=== PATIENT | female | born 1990 | race African-American/Black ===

== ENCOUNTER 2016-11-10 17:52 | Emergency (ER) | payer MEDICAID ==
[~2016-11-10] VITALS: Ht 167.6 cm; Wt 74.4 kg
[2016-11-10] MEDS ORDERED: METFORMIN HCL500 M1 ORAL (18:45)
[2016-11-10 18:55] VITALS: BP 145/87
--- NOTE | 2016-11-14 06:57 | Emergency Room Report ---
History of Present Illness General Chief Complaint: Chest Pain Source: Patient Present Illness HPI 26YOF walk-in with chest pain for 1-2 days. Sharp, left upper chest, non- radiating, Worse with movement. Not pleuritic. No assoc cough, nausea/vomiting , diaphoresis. Questionable history of HTN and DM. used to take metformin, stopped because she ran out weeks ago. Blood sugar at home was >300. Unable to followup with PMD Patient History Past Medical History: DM, HTN Past Surgical History: none Pertinent Family History: none Social History: Denies: smoking, alcohol use, drug use Last Menstrual Period: 10/20 Now: No Immunizations: UTD Reviewed Nursing Documentation: PMH: Agreed, PSxH: Agreed Nursing Documentation-PMH Past Medical History: No History, Except For Hx Hypertension: Yes Review of Systems All Other Systems: negative except mentioned in HPI Physical Exam Vital Signs Date Time Temp Pulse Resp B/P (MAP) Pulse Ox O2 Delivery O2 Flow Rate FiO2 11/10/16 18:04 98.2 84 15 99 Room Air 11/10/16 18:55 145/87 Sp02 EP Interpretation: reviewed, normal General Appearance: normal inspection, well appearing, no apparent distress, alert, GCS 15, non-toxic Head: normocephalic, atraumatic Eyes: bilateral eye PERRL, bilateral eye EOMI ENT: normal ENT inspection, hearing grossly normal, normal voice Neck: normal inspection, full range of motion, supple, no bony tend Respiratory: normal inspection, lungs clear, normal breath sounds, no respiratory distress, no retraction, no wheezing, other - Palpation of chest causes reproducible pain, chest symmetrical Cardiovascular #1: regular rate, rhythm, no edema Gastrointestinal: normal inspection, normal bowel sounds, non tender, soft, no guarding, no hernia Genitourinary: no CVA tenderness Musculoskeletal: normal inspection, back normal, normal range of motion, Maris' s Sign negative Neurologic: normal inspection, alert, oriented x3, responsive, 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 Occurring over 2 days ECG is NSR. No ischemia CP resolved while in the ED Glucose here was ~150 Will Refill Rx Metformin - patient states she used to take 500mg BID Will have close PMD followup in 1-2 days Return to ER for worsening chest pain EKG Diagnostic Results Rate: normal Rhythm: NSR ST Segments: no acute changes ASA given to the pt in ED: No Last Vital Signs Date Time Temp Pulse Resp B/P (MAP) Pulse Ox O2 Delivery O2 Flow Rate FiO2 11/10/16 18:55 78 12 145/87 99 Room Air 11/10/16 18:55 98.2 Status: improved Disposition: HOME, SELF-CARE Condition: Improved Scripts Metformin Hcl* (METFORMIN HCL*) 500 Mg Tablet 500 MG ORAL TWICE A DAY for 30 Days, #60 TAB Prov: JUSTIN SANTANA M.D. 11/10/16 Referrals: [facility]ERR[facility] (PCP) Patient Instructions: Nonspecific Chest Pain, Diabetes Mellitus and Food Additional Instructions: - Take Metformin twice a day as prescribed - Follow up with your doctor in 2-3 days - Take tylenol as needed for chest pain JUSTIN SANTANA M.D. Nov 14, 2016 06:57
== END 2016-11-10 18:55 | disposition home or self-care (01) ==
LOC: EMR 18:27
DX: R07.9 Chest pain, unspecified (principal); I10 Essential (primary) hypertension; E11.9 Type 2 diabetes mellitus without complications; Z91.14 Patient's other noncompliance with medication regimen
CPT/HCPCS: 82962; 93005; 99284

== ENCOUNTER 2018-08-04 10:10 | Emergency (ER) | payer MEDICAID ==
[~2018-08-04] VITALS: Ht 162.6 cm; Wt 63.5 kg
[~2018-08-04 10:10] MED LIST: METFORMIN HCL500 M1 ORAL
[2018-08-04 10:26] VITALS: BP 178/125
--- NOTE | 2018-08-04 10:35 | Emergency Room Report ---
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 She reports that is difficult to describe the incident specifically however she had a fall and had to hold herself up after that she has been having pain to the upper chest area bilaterally left ankle was swollen and tender Denies any vomiting or diarrhea denies any lapse of consciousness Denies any abdominal pain Allergies: Coded Allergies: No Known Allergies (Unverified , 08/04/18) Patient History Past Medical History: see triage record Pertinent Family History: none Reviewed Nursing Documentation: PMH: Agreed; PSxH: Agreed Nursing Documentation-PMH Past Medical History: No History, Except For Hx Hypertension: Yes Hx Diabetes: Yes Review of Systems All Other Systems: negative except mentioned in HPI Physical Exam Vital Signs Date Time Temp Pulse Resp B/P (MAP) Pulse Ox O2 Delivery O2 Flow Rate FiO2 08/04/18 10:18 97.5 96 19 178/125 (142) 99 Room Air Sp02 EP Interpretation: reviewed, normal General Appearance: well appearing, no apparent distress - Somewhat sleepy during evaluation Head: normocephalic, atraumatic Eyes: bilateral eye PERRL, bilateral eye EOMI ENT: hearing grossly normal, normal pharynx Neck: supple Respiratory: lungs clear Cardiovascular #1: regular rate, rhythm Gastrointestinal: non tender, soft Musculoskeletal: swelling - Left lateral ankle, tender on palpation Neurologic: alert, oriented x3, responsive Skin: no rash Lymphatic: no adenopathy Medical Decision Making Diagnostic Impression: Primary Impression: Chest pain Additional Impressions: Contusion Ankle sprain ER Course Given the patient's history and presentation Patient's description is fairly mechanical in nature and her description of the chest pain and discomfort is Appearing to be likely related to the trauma x-ray imaging obtained was negative patient resting comfortably in no acute distress On reevaluation is stable for close outpatient follow-up EKG Diagnostic Results Rate: normal Rhythm: NSR ST Segments: no acute changes Rhythm Strip Diag. Results EP Interpretation: yes Rate: 60 Rhythm: NSR, no PVC's, no ectopy Chest X-Ray Diagnostic Results Chest X-Ray Diagnostic Results : Chest X-Ray Ordered: Yes # of Views/Limited/Complete: 1 View Indication: Chest Pain EP Interpretation: Yes Interpretation: no consolidation, no effusion, no pneumothorax Impression: No acute disease Electronically Signed by: Niels Adame DO Other X-Ray Diagnostic Results Other X-Ray Diagnostic Results : X-Ray ordered: Right ankle # of Views/Limited Vs Complete: 3 View Indication: Pain EP Interpretation: Yes Interpretation: no dislocation, no soft tissue swelling, no fractures Impression: No acute disease Electronically Signed by: Niels Adame DO Last Vital Signs Date Time Temp Pulse Resp B/P (MAP) Pulse Ox O2 Delivery O2 Flow Rate FiO2 08/04/18 10:26 97.5 90 19 178/125 99 Room Air Status: improved Disposition: HOME, SELF-CARE Condition: Improved Scripts Ibuprofen* (MOTRIN*) 600 Mg Tablet 600 MG ORAL Q8H PRN for For Pain, #20 TAB 0 Refills Prov: Niels Adame DO 08/04/18 Additional Instructions: Patient is provided with the discharge instructions notified to follow up with primary doctor in the next 2-3 days otherwise return to the er with any worsening symptoms. Please note that this report is being documented using [employer] technology. This can lead to erroneous entry secondary to incorrect interpretation by the dictating instrument. Niels Adame DO Aug 04, 2018 10:35
[2018-08-04] MEDS ORDERED: IBUPROFEN600 MG ORAL (11:28)
[2018-08-04 11:34] VITALS: BP 163/87
--- NOTE | 2018-08-04 14:27 | Diagnostic Imaging Report ---
Indication: Chest pain Technique: One view of the chest Comparison: none Findings: The lungs and pleural spaces are clear. Heart size is normal. The aorta is tortuous. Impression: No acute process
--- NOTE | 2018-08-04 14:30 | Diagnostic Imaging Report ---
Indication: Left ankle pain Technique: 3 views of the left ankle Comparison: none Findings: Suboptimal mortise view-patient left before image could be repeated. No acute fractures. No dislocations. The joint spaces are preserved. Impression: Limited. No acute bony trauma
== END 2018-08-04 11:34 | disposition home or self-care (01) ==
LOC: EMR 10:33
DX: S93.402A Sprain of unspecified ligament of left ankle, initial encounter (principal); R07.9 Chest pain, unspecified; I10 Essential (primary) hypertension; E11.9 Type 2 diabetes mellitus without complications; T14.8XXA Other injury of unspecified body region, initial encounter; W19.XXXA Unspecified fall, initial encounter; Y92.9 Unspecified place or not applicable; Y99.0 Civilian activity done for income or pay
CPT/HCPCS: 71045; 93005; 99284